=== PATIENT | male | born 1940 | race Two or more races ===

== ENCOUNTER 2016-12-06 10:42 | Emergency (ER) | payer MEDICARE ==
[~2016-12-06] VITALS: Ht 177.8 cm; Wt 77.1 kg
[~2016-12-06 10:42] MED LIST: AMOX500C2 PO; IBUP-1482 PO; METF500T4 PO
--- NOTE | 2016-12-06 10:42 | NUR ---
BB SELF: NAUSEA/VOMITING THIS AM. DENIES DIARRHEA. NAD NOTED. PT AAOX4, AMB WITH STEADY GAIT. RR EVEN AND UNLABORED. PENDING MD ROSAS.
[2016-12-06 11:24] LABS: BASOPHILS % (AUTO) 0.4 % (0.0-2.0); EOSINOPHILS # (AUTO) 0.1 /CMM (0.0-0.7); EOSINOPHILS % (AUTO) 1.2 % (0.0-6.0); HEMATOCRIT 47 % (39-51); HEMOGLOBIN 15.6 g/dL (13.5-17.5); LYMPHOCYTES # (AUTO) 1.7 /CMM (0.8-4.8); LYMPHOCYTES % (AUTO) 16.4 % (20.0-44.0); MEAN CORPUSCULAR HEMOGLOBIN 31 PG (26.0-33.0); MEAN CORPUSCULAR HGB CONC 34 g/dl (31.0-36.0); MEAN CORPUSCULAR VOLUME 92 fL (80-96); MONOCYTES # (AUTO) 0.5 /CMM (0.1-1.30); MONOCYTES % (AUTO) 4.8 % (2.0-12.0); NEUTROPHILS # (AUTO) 8.2 /CMM (1.8-8.9); NEUTROPHILS % (AUTO) 77.2 % (43.0-81.0); PLATELET COUNT (AUTO) 206 /CMM (150-450); RDW COEFFICIENT OF VARIATION 12.4 (11.5-15.0); RED BLOOD CELL COUNT(AUTO) 5.06 MIL/uL (4.5-6.0); WHITE BLOOD COUNT (AUTO) 10.5 K/uL (4.3-11.0)
[2016-12-06] MEDS ORDERED: ONDANSETRON HCL/PF 4 MG/2 ML VIAL ONE (11:25)
[2016-12-06] MEDS ORDERED: FAMOTIDINE/PF INJ 20 MG/2 ML VIAL IV ONE ×2 (11:25→11:30)
[2016-12-06] MEDS ORDERED: ONDANSETRON HCL/PF 4 MG/2 ML VIAL IVP ONE (11:30)
[2016-12-06] MEDS ORDERED: IV NS 0.9% 1,000 ML BAG IV ONE (11:30)
--- NOTE | 2016-12-06 11:36 | NUR ---
URINE OBTAINED SENT TO LAB.
[2016-12-06 11:39] LABS: ALANINE AMINOTRANSFERASE 14 U/L (12-78); ALBUMIN 3.4 g/dL (3.4-5.0); ALKALINE PHOSPHATASE 86 U/L (46-116); ASPARTATE AMINOTRANSFERASE 14 U/L (15-37); BILIRUBIN,DIRECT 0.1 mg/dL (0.0-0.2); BILIRUBIN,TOTAL 0.5 mg/dL (0.2-1.0); CALCIUM, SERUM 8.2 mg/dL (8.5-10.1); CARBON DIOXIDE 28 mmol/L (21-32); CHLORIDE 104 mmol/L (98-107); GLUCOSE 169 mg/dL (74-106); LIPASE 99 U/L (73-393); POTASSIUM 3.8 mmol/L (3.5-5.1); SODIUM SERUM 138 mmol/L (136-145); TOTAL PROTEIN, SERUM 6.8 g/dL (6.4-8.2); UREA NITROGEN, BLOOD 17 mg/dL (7-18)
[2016-12-06 11:41] LABS: TROPONIN I < 0.017 ng/mL (0.00-0.056)
[2016-12-06 11:47] LABS: APPEARANCE,URINE Clear (CLEAR); BILIRUBIN,URINE Negative (NEGATIVE); BLOOD, URINE Negative Ery/uL (NEGATIVE); COLOR,URINE Yellow (YELLOW); KETONES,URINE 15 (NEGATIVE); LEUKOCYTE ESTERASE ,URINE Negative (NEGATIVE); NITRITE, URINE Negative (NEGATIVE); PROTEIN,URINE Negative (NEGATIVE); UGLUCOSE Negative (NEGATIVE); UROBILINOGEN,URINE 0.2 EU/dL (0.2)
[2016-12-06 12:08] LABS: BACTERIA,URINE Rare /HPF (None Seen); RBC,URINE 0-2 /HPF (0-2); SQUAMOUS EPITHELIAL CELL,UR Few /HPF (None Seen); WBC,URINE NONE SEEN /HPF (0-3)
[2016-12-06 12:44] VITALS: BP 134/80
--- NOTE | 2016-12-06 12:45 | NUR ---
IV removed. Catheter intact and site benign. Pressure and 4x4 applied to site. No bleeding noted.
--- NOTE | 2016-12-06 12:45 | NUR ---
Patient discharged to home in stable condition. Written and verbal after care instructions given. Patient verbalizes understanding of instruction.
== END 2016-12-06 12:45 | disposition home or self-care (01) ==
LOC: ER 10:46
DX: R11.2 Nausea with vomiting, unspecified (principal); E11.9 Type 2 diabetes mellitus without complications; F17.200 Nicotine dependence, unspecified, uncomplicated
CPT/HCPCS: 36415; 71010; 80048; 80076; 81001; 83690; 84484; 85025; 93005; 96361; 96374; 96375; 99285; A4606; J2405; J3490; J7030; 81000-TC; Z7610

== ENCOUNTER 2017-08-07 03:20 | Emergency (ER) | payer MEDICARE ==
[~2017-08-07] VITALS: Ht 177.8 cm; Wt 81.6 kg
[~2017-08-07 03:20] MED LIST changes: -IBUP-1482 PO; +IBUP-1958 PO; +METF-440 PO; -METF500T4 PO
[2017-08-07 03:32] VITALS: BP 148/88
[2017-08-07] MEDS ORDERED: NAPROXEN 250 MG TABLET ONE (04:04)
[2017-08-07] MEDS ORDERED: NAPROXEN 500 MG TABLET PO SCH (04:30)
== END 2017-08-07 04:07 | disposition home or self-care (01) ==
LOC: ER 03:24
DX: L02.811 Cutaneous abscess of head [any part, except face] (principal); I10 Essential (primary) hypertension; F17.200 Nicotine dependence, unspecified, uncomplicated; Z60.2 Problems related to living alone
CPT/HCPCS: A4606; Z7610

== ENCOUNTER 2017-08-12 18:36 | Emergency (ER) | payer MEDICARE ==
[~2017-08-12] VITALS: Ht 177.8 cm; Wt 81.6 kg
[2017-08-12 18:36] VITALS: BP 129/75
--- NOTE | 2017-08-12 19:40 | NUR ---
CALLED PT IN [place], NO RESPONSE
[2017-08-12] MEDS ORDERED: CEFTRIAXONE 500 MG VIAL IM ONE (20:30)
[2017-08-12] MEDS ORDERED: AZITHROMYCIN 250 MG TABLET PO ONE (20:30)
[2017-08-12] MEDS ORDERED: LIDOCAINE 0.5% HCL 50 ML VIAL ONE (21:11)
[2017-08-12] MEDS ORDERED: CEFTRIAXONE 500 MG VIAL ONE (21:11)
[2017-08-12] MEDS ORDERED: AZITHROMYCIN 250 MG TABLET ONE (21:11)
[2017-08-12 22:12] LABS: APPEARANCE,URINE CLEAR (CLEAR); BILIRUBIN,URINE NEGATIVE (NEGATIVE); BLOOD, URINE 2+ Ery/uL (NEGATIVE); COLOR,URINE DARK YELLO (YELLOW); KETONES,URINE NEGATIVE (NEGATIVE); LEUKOCYTE ESTERASE ,URINE NEGATIVE (NEGATIVE); NITRITE, URINE NEGATIVE (NEGATIVE); PROTEIN,URINE 3+ mg/dl (NEGATIVE); UGLUCOSE TRACE mg/dL (NEGATIVE); UROBILINOGEN,URINE 0.2 EU/dL (0.2)
[2017-08-12 22:16] LABS: BACTERIA,URINE Few /HPF (None Seen); MUCUS,URINE Many /LPF (None Seen); SQUAMOUS EPITHELIAL CELL,UR Few /HPF (None Seen)
== END 2017-08-12 21:29 | disposition home or self-care (01) ==
LOC: ER 18:40
DX: Z20.2 Contact with and (suspected) exposure to infections with a predominantly sexual mode of transmission (principal); N48.1 Balanitis; I10 Essential (primary) hypertension; F17.200 Nicotine dependence, unspecified, uncomplicated
CPT/HCPCS: 81000-TC; 87491; 87591; A4606; J0696; J3490; Z7610

== ENCOUNTER 2017-08-18 12:44 | Inpatient (IN) | payer MEDICARE ==
[~2017-08-18] VITALS: Ht 177.8 cm; Wt 81.6 kg
--- NOTE | 2017-08-18 13:00 | NUR ---
RASH, SOB, S/P TAKING UNKNOWN ABX X3 DAYS, NAD NOTED, VSS, RESP EVEN AND UNLABORED. PT WAS PUT ON MONITOR, WAITING FOR MD ROSAS.
[2017-08-18 13:16] LABS: BASOPHILS # (AUTO) 0.1 /CMM (0.0-0.2); BASOPHILS % (AUTO) 0.7 % (0.0-2.0); EOSINOPHILS % (AUTO) 3.4 % (0.0-6.0); HEMATOCRIT 48 % (39-51); HEMOGLOBIN 15.8 g/dL (13.5-17.5); LYMPHOCYTES # (AUTO) 1.7 /CMM (0.8-4.8); LYMPHOCYTES % (AUTO) 14.9 % (20.0-44.0); MEAN CORPUSCULAR HGB CONC 33 g/dl (31.0-36.0); MEAN CORPUSCULAR VOLUME 91 fL (80-96); MONOCYTES # (AUTO) 0.8 /CMM (0.1-1.30); MONOCYTES % (AUTO) 7.6 % (2.0-12.0); NEUTROPHILS # (AUTO) 8.1 /CMM (1.8-8.9); NEUTROPHILS % (AUTO) 73.4 % (43.0-81.0); PLATELET COUNT (AUTO) 242 /CMM (150-450); RDW COEFFICIENT OF VARIATION 12.6 (11.5-15.0); RED BLOOD CELL COUNT(AUTO) 5.28 MIL/uL (4.5-6.0); WHITE BLOOD COUNT (AUTO) 11.1 K/uL (4.3-11.0)
[2017-08-18 13:25] LABS: CALCIUM, SERUM 8.7 mg/dL (8.5-10.1); CARBON DIOXIDE 27 mmol/L (21-32); CHLORIDE 103 mmol/L (98-107); CREATININE 1.1 mg/dL (0.6-1.3); GLUCOSE 180 mg/dL (74-106); POTASSIUM 3.9 mmol/L (3.5-5.1); SODIUM SERUM 136 mmol/L (136-145); UREA NITROGEN, BLOOD 30 mg/dL (7-18)
[2017-08-18] MEDS ORDERED: LIDOCAINE VISCOUS 2% UD 15 ML UDC MM ONE (13:30)
[2017-08-18] MEDS ORDERED: LIDOCAINE VISCOUS 2% UD 15 ML UDC ONE (13:34)
--- NOTE | 2017-08-18 13:42 | NUR ---
CALLED NURSING SUP. FOR MS BED
--- NOTE | 2017-08-18 14:19 | NUR ---
MS 119-1 FOR RASH, ADMITTING
[2017-08-18 15:10] LABS: APPEARANCE,URINE Clear (CLEAR); BILIRUBIN,URINE SMALL (NEGATIVE); BLOOD, URINE Trace-intact Ery/uL (NEGATIVE); COLOR,URINE Dark (YELLOW); KETONES,URINE Trace (NEGATIVE); LEUKOCYTE ESTERASE ,URINE Negative (NEGATIVE); NITRITE, URINE Negative (NEGATIVE); PROTEIN,URINE 30 mg/dl (NEGATIVE); UGLUCOSE Negative (NEGATIVE); UROBILINOGEN,URINE 0.2 EU/dL (0.2)
--- NOTE | 2017-08-18 15:20 | NUR ---
MS RN NOTE: RECEIVED PATIENT IN ROOM 119-2 AND REPORT WAS GIVEN BY [facility] RN. PATIENT IS ALERT, ORIENTED AND ABLE TO VERBALIZE HIS NEEDS. PATIENT DENIED ANY PAIN. PLACED IN BED IN A COMFORTABLE POSITION. HOB ELEVATED. COMPLETE BODY ASSESSMENT WAS DONE. BED LOCKED AT ALL TIMES. CALL LIGHT WITHIN REACH AT ALL TIMES. BED IN LOWEST POSITION. INFORMED DR. WILL RE:THE PATIENT'S ADMISSION AND AWAITING FOR DR. WILL'S ORDERS.
[2017-08-18 15:31] LABS: BACTERIA,URINE Rare /HPF (None Seen); RBC,URINE 0-2 /HPF (0-2); SQUAMOUS EPITHELIAL CELL,UR Rare /HPF (None Seen); WBC,URINE 0-2 /HPF (0-3)
[2017-08-18] MEDS ORDERED: ONDANSETRON HCL/PF 4 MG/2 ML VIAL IVP PRN (16:30)
[2017-08-18] MEDS ORDERED: Z GUARD REMEDY 2 OZ OINT TP PRN (16:30)
[2017-08-18] MEDS: IV D5/0.45 NACL 1,000 ML IV PRN (16:41)
[2017-08-18] MEDS ORDERED: diphenhydrAMINE HCL 50 MG/ML VIAL IV PRN (17:00)
[2017-08-18] MEDS ORDERED: NYSTATIN (PYXIS) 500,000 UNIT/5 ML ORAL.SUSP PO SCH (17:00)
[2017-08-18] MEDS: methylPREDNISolone SOD SUCC 40 MG/ML VIAL IV SCH (17:23)
[2017-08-18] MEDS: LIDOCAINE VISCOUS 2% UD 15 ML UDC MM SCH ×2 (18:43→22:53)
--- NOTE | 2017-08-18 19:02 | NUR ---
MS RN NOTE: PATIENT IN BED NOT ON ANY FORM OF DISTRESS. HOB ELEVATED. EX- PRESENT AT THE BEDSIDE. PATIENT STILL EATING HIS DINNER TRAY AT THIS TIME. REPORT GIVEN TO PM SHIFT FOR CONTINUITY OF CARE.
--- NOTE | 2017-08-18 19:25 | NUR ---
RN M/S NOTE RECEIVED PATIENT AOX3, SPEECH CLEAR, ABLE TO MAKE NEEDS KNOWN, DENIES PAIN, RESTING COMFORTABLY WITH HOB ELEVATED, NO CARDIAC OR RESPIRATORY DISTRESS REPORTED, SKIN KEPT CLEAN AND DRY, LAC 18G WITH D5W AT 75 ML/HR TOLERATING WELL, PATENT, SITE CDI, AMBULATORY WITH ASSIST, SAFETY MAINTAINED AT ALL TIMES, BED IN LOW LOCKED POSITION, CALL LIGHT WITHIN REACH, WILL CONTINUE TO MONITOR FOR ANY CHANGES IN CONDITION.
[2017-08-18 20:00] VITALS: BP 144/81
[2017-08-18] MEDS: ZOLPIDEM TARTRATE 5 MG TABLET PO PRN (22:53)
[2017-08-19] MEDS: LIDOCAINE VISCOUS 2% UD 15 ML UDC MM SCH ×6 (02:23→21:36)
[2017-08-19 04:00] VITALS: BP 113/59
[2017-08-19] MEDS: IV D5/0.45 NACL 1,000 ML IV PRN ×2 (05:35→20:35)
[2017-08-19 07:00] LABS: BASOPHILS % (AUTO) 0.2 % (0.0-2.0); EOSINOPHILS % (AUTO) 0.1 % (0.0-6.0); HEMATOCRIT 42 % (39-51); HEMOGLOBIN 14.6 g/dL (13.5-17.5); LYMPHOCYTES # (AUTO) 1.2 /CMM (0.8-4.8); LYMPHOCYTES % (AUTO) 14.8 % (20.0-44.0); MEAN CORPUSCULAR HGB CONC 34 g/dl (31.0-36.0); MEAN CORPUSCULAR VOLUME 90 fL (80-96); MONOCYTES # (AUTO) 0.6 /CMM (0.1-1.30); MONOCYTES % (AUTO) 7.5 % (2.0-12.0); NEUTROPHILS # (AUTO) 6.1 /CMM (1.8-8.9); NEUTROPHILS % (AUTO) 77.4 % (43.0-81.0); PLATELET COUNT (AUTO) 216 /CMM (150-450); RDW COEFFICIENT OF VARIATION 12.8 (11.5-15.0); WHITE BLOOD COUNT (AUTO) 7.9 K/uL (4.3-11.0)
--- NOTE | 2017-08-19 07:00 | NUR ---
M/S RN OPENING NOTE RECEIVED PATIENT IN BED.AOX3, SPEECH CLEAR, ABLE TO MAKE NEEDS KNOWN, DENIES PAIN, RESTING COMFORTABLY WITH HOB ELEVATED, NO CARDIAC OR RESPIRATORY DISTRESS REPORTED, IV LAC 18G WITH D5W AT 75 ML/HR . PATENT, SITE CDI, AMBULATORY WITH ASSIST, SAFETY MAINTAINED , BED IN LOW LOCKED POSITION, CALL LIGHT WITHIN REACH,SRX3. WILL CONTINUE TO MONITOR.
[2017-08-19 07:13] LABS: ALANINE AMINOTRANSFERASE 14 U/L (12-78); ALKALINE PHOSPHATASE 81 U/L (46-116); ASPARTATE AMINOTRANSFERASE 16 U/L (15-37); BILIRUBIN,TOTAL 0.2 mg/dL (0.2-1.0); CALCIUM, SERUM 8.6 mg/dL (8.5-10.1); CARBON DIOXIDE 26 mmol/L (21-32); CHLORIDE 104 mmol/L (98-107); CREATININE 0.8 mg/dL (0.6-1.3); GLUCOSE 224 mg/dL (74-106); MAGNESIUM 1.7 mg/dL (1.8-2.4); PHOSPHORUS 3.1 mg/dL (2.5-4.9); POTASSIUM 4.2 mmol/L (3.5-5.1); SODIUM SERUM 135 mmol/L (136-145); TOTAL PROTEIN, SERUM 6.8 g/dL (6.4-8.2); UREA NITROGEN, BLOOD 18 mg/dL (7-18)
[2017-08-19 07:19] LABS: CHOLESTEROL 142 mg/dL (<200); HDL CHOLESTEROL 32 mg/dL (40-60); LDL 105 mg/dL (0-99); TRIGLYCERIDES 45 mg/dL (30-150)
[2017-08-19 07:33] LABS: IRON, SERUM 46 ug/dl (50-175); TOTAL IRON BINDING CAPACITY 250 ug/dl (250-450)
[2017-08-19 08:00] VITALS: BP 147/71
[2017-08-19] MEDS: methylPREDNISolone SOD SUCC 40 MG/ML VIAL IV SCH ×3 (08:36→16:43)
[2017-08-19] MEDS: NYSTATIN (PYXIS) 500,000 UNIT/5 ML ORAL.SUSP PO SCH ×3 (08:37→16:42)
[2017-08-19] MEDS: ACETAMINOPHEN 325 MG TABLET PO PRN ×2 (08:44→21:18)
--- NOTE | 2017-08-19 09:00 | NUR ---
RN NOTES SEEN BY DR WILL MADE AWARE ABOUT THE LAB VALUES LOW Mg.HE SAID HE WILL FOLLOW UP .PLAN TO CONTINUE TREATMENT WITH STEROIDS.
[2017-08-19] MEDS: Magnesium 1GM/D5W 100ML PREMIX 100 ML IV SCH ×2 (10:57→12:05)
--- NOTE | 2017-08-19 11:00 | NUR ---
RN NOTES DR WILL MADE AWARE ABOUT THE VTE RISK.NO VTE PROPHYLAXIS NOW .CONTINUE TO MONITOR.
[2017-08-19 16:00] VITALS: BP 129/88
--- NOTE | 2017-08-19 19:00 | NUR ---
M/S RN SHIFT END NOTE PATIENT IN BED.AOX3, SPEECH CLEAR, ABLE TO MAKE NEEDS KNOWN, DENIES PAIN, RESTING COMFORTABLY WITH HOB ELEVATED, NO CARDIAC OR RESPIRATORY DISTRESS REPORTED, IV LAC 18G WITH D5W AT 75 ML/HR . PATENT, SITE CDI, AMBULATORY WITH ASSIST, SAFETY MAINTAINED , BED IN LOW LOCKED POSITION, CALL LIGHT WITHIN REACH,SRX3. WILL ENDORSE TO PM NURSE FOR POLINA.
--- NOTE | 2017-08-19 19:30 | NUR ---
RN NOTES RECEIVED PT AWAKE ON BED, A/OX4, AMBULATORY, AT BEDSIDE, IV FLUID 551/2 NS RUNNING @ 75ML/HR, DENIES PAIN, NO SOB, CALL LIGHT WITHIN REACH, SIDERAILSUPX2, CONTINUE TO MONITOR
[2017-08-19 20:00] VITALS: BP 130/61
--- NOTE | 2017-08-19 21:20 | NUR ---
RN NOTES COMPLAINED OF HEADACHE AND ASKED FOR TYLENOL. TYLENOL 650MG PO GIVEN ORDERED, V/S STABLE
--- NOTE | 2017-08-19 22:30 | NUR ---
RN NOTES NEW IV LINE INSERTED ON HIS RIGHT HAND #[id number]
--- NOTE | 2017-08-19 22:50 | NUR ---
RN NOTES PT. ASKED IF WE CAN GIVE SOMETHING FOR SLEEPING, AMBIEN 5MG PO GIVEN ORDERED, V/S STABLE
[2017-08-19] MEDS: ZOLPIDEM TARTRATE 5 MG TABLET PO PRN (22:51)
[2017-08-20] MEDS: LIDOCAINE VISCOUS 2% UD 15 ML UDC MM SCH ×4 (02:30→13:42)
--- NOTE | 2017-08-20 02:42 | NUR ---
RN NOTES XYLOCAINE 15ML PO WAS NOT GIVEN, PT IS SLEEPING AND HE'S SNORING. PT STATED HE WANTS TO SLEEP TONIGHT
[2017-08-20 04:32] VITALS: BP 135/68
[2017-08-20 04:39] VITALS: BP 135/68
--- NOTE | 2017-08-20 06:39 | NUR ---
RN NOTES AWAKE, DENIES PAIN, NO SOB, MORNING CARE RENDERED, CALL LIGHT WITHIN REACH, SIDERAILSUPX2, PT. NEEDS ATTENDED
[2017-08-20 06:58] LABS: CALCIUM, SERUM 8.2 mg/dL (8.5-10.1); CARBON DIOXIDE 27 mmol/L (21-32); CHLORIDE 104 mmol/L (98-107); CREATININE 0.8 mg/dL (0.6-1.3); GLUCOSE 250 mg/dL (74-106); MAGNESIUM 1.9 mg/dL (1.8-2.4); SODIUM SERUM 137 mmol/L (136-145); UREA NITROGEN, BLOOD 19 mg/dL (7-18)
--- NOTE | 2017-08-20 07:57 | NUR ---
MS RN OPENING NOTE RECEIVED BEDSIDE SBAR REPORT ON THE PATIENT. PATIENT IS A/O X4, COOPERATIVE, ASLEEP, EASILY AWAKEN IN BED. BED IS LOCKED IN LOWEST POSITION, SIDE RAILS UP X2, BED ALARM IS ON. PATIENT IS AMBULATORY. DENIES PAIN/DISCOMFORT AT THIS TIME. ALL NEEDS ARE MET. CALL LIGHT WITHIN REACH. EDUCATED TO CALL FOR ASSISTANCE USING THE CALL LIGHT AND VERBALIZED UNDERSTANDING. WILL CONTINUE TO ASSESS/MONITOR THROUGHOUT THE SHIFT.
[2017-08-20 08:00] VITALS: BP 116/58
[2017-08-20] MEDS: methylPREDNISolone SOD SUCC 40 MG/ML VIAL IV SCH ×2 (09:41→13:42)
[2017-08-20] MEDS: NYSTATIN (PYXIS) 500,000 UNIT/5 ML ORAL.SUSP PO SCH ×2 (09:41→13:42)
--- NOTE | 2017-08-20 09:46 | NUR ---
PATIENT COMPLAINED OF ITCHING. BENADRYL ADMINISTERED ORDERED.
--- NOTE | 2017-08-20 09:50 | NUR ---
DR DAY AT THE BEDSIDE PERFORMING RIGHT FOOT INCISION AND DRAINAGE. CONCENT SIGNED. PATIENT TOLERATED PROCEDURE WELL. SPECIMEN OBTAINED AND PLACED IN THE STERILE CONTAINER. LABELED PER POLICY. PATIENT TOLERATED PROCEDURE WELL. PICTURE TAKEN. ORDER RECEIVED AT THE BEDSIDE FOR WOUND CARE. READ BACK AND VERIFIED. WILL FOLLOW ORDER RECEIVED.
--- NOTE | 2017-08-20 10:00 | NUR ---
WOUND CARE CONSULT WOUND CARE RECEIVED CONSULT FOR BLISTERS. WOUND CARE WILL DEFER CONSULT AND ALL TREATMENT PLANS TO SURGICAL TEAM AT THIS TIME. PATIENT WITH BETHANY AT 19.
[2017-08-20] MEDS: MAG HYDROX/AL HYDROX/SIMETH 30 ML UDC PO PRN ×3 (11:07→11:22)
--- NOTE | 2017-08-20 11:36 | NUR ---
Received a verbal order to send the specimen to the lab for culture w REGINA. Read back and verified.
--- NOTE | 2017-08-20 11:37 | NUR ---
Dropped off to laboratory
[2017-08-20 16:00] VITALS: BP 118/71
--- NOTE | 2017-08-20 16:42 | NUR ---
MS VIBRATING SCREED OPERATOR NOTE DISCHARGE ORDER RECEIVED. DISCHARGE DISCUSSED WITH THE [PATIENT/DAUGHTER AT THE BEDSIDE. ALL BELONGINGS ARE ACCOUNTED FOR. DISCHARGE EDUCATION PROVIDED TO PT/FAMILY. CLINIC APPOINTMENT SCHEDULE IS HANDED TO THE PATIENT. IV CATHETER REMOVED. SKIN ASSESSMENT PICTURES TAKEN AND PLACED INTO THE CHART. OCCLUSIVE DRESSING APPLIED. PATIENT IS LEAVING THE UNIT IN STABLE CONDITION ACCOMPANIED BY THE DAUGHTER.
== END 2017-08-20 16:41 | disposition home or self-care (01) | DRG 596 ==
LOC: ER 12:46 → MEDSG1 14:24
PROVIDERS: ADMIT Internal Medicine; ATTEND Internal Medicine
PROC: 0J9Q0ZX Drainage of Right Foot Subcutaneous Tissue and Fascia, Open Approach, Diagnostic (ICD-10-PCS; principal; 2017-08-20)
DX: L51.1 Stevens-Johnson syndrome (principal); B37.0 Candidal stomatitis; L02.811 Cutaneous abscess of head [any part, except face]; L51.9 Erythema multiforme, unspecified; T37.0X5A Adverse effect of sulfonamides, initial encounter; Y92.009 Unspecified place in unspecified non-institutional (private) residence as the place of occurrence of the external cause; F17.200 Nicotine dependence, unspecified, uncomplicated; Z91.048 Other nonmedicinal substance allergy status; I10 Essential (primary) hypertension; S90.821A Blister (nonthermal), right foot, initial encounter
CPT/HCPCS: 36415; 71045-TC; 80048-TC; 80053-TC; 80061-TC; 81000-TC; 83540-TC; 83735-TC; 83880; 84100-TC; 85025-TC; 85652-TC; 86403-TC; 87040-TC; 87070-TC; 87081-TC; 87086-TC; A4606; A6402; J1200; J2920; J3475; J3490; J7070; Z7610

== ENCOUNTER 2017-08-23 12:47 | Outpatient (CLI) | payer MEDICARE ==
[2017-08-23 13:14] VITALS: BP 139/72
== END 2017-08-23 23:59 | disposition home or self-care (01) ==
LOC: MSC 12:47
PROVIDERS: ATTEND Internal Medicine
DX: T78.40XD Allergy, unspecified, subsequent encounter (principal); T37.0X5D Adverse effect of sulfonamides, subsequent encounter; T50.995D Adverse effect of other drugs, medicaments and biological substances, subsequent encounter; R03.0 Elevated blood-pressure reading, without diagnosis of hypertension; R73.03 Prediabetes; F17.200 Nicotine dependence, unspecified, uncomplicated

== ENCOUNTER 2018-03-21 07:53 | Inpatient (IN) | payer MEDICARE ==
[~2018-03-21] VITALS: Ht 177.8 cm; Wt 81.6 kg
[~2018-03-21 07:53] MED LIST changes: -AMOX500C2 PO; +ASPI-1152 PO; -IBUP-1958 PO; -METF-440 PO; +SIMV40TA5 PO
--- NOTE | 2018-03-21 08:03 | NUR ---
ACTIVATED CODE STROKE.
--- NOTE | 2018-03-21 08:04 | NUR ---
To CT with RN , Tech and registered nurse cardiac telemetry
[2018-03-21] MEDS ORDERED: IV NS 0.9% 250 ML IV ONE (08:09)
[2018-03-21] MEDS ORDERED: CT SWABBABLE VALVE TRANS SET 1 EA INFUS.SET MC ONE (08:09)
[2018-03-21] MEDS ORDERED: IOHEXOL-350 100 ML VIAL IV ONE (08:09)
[2018-03-21 08:13] LABS: BASOPHILS # (AUTO) 0.1 /CMM (0.0-0.2); BASOPHILS % (AUTO) 0.8 % (0.0-2.0); EOSINOPHILS % (AUTO) 1.1 % (0.0-6.0); HEMATOCRIT 47 % (39-51); LYMPHOCYTES # (AUTO) 3.5 /CMM (0.8-4.8); LYMPHOCYTES % (AUTO) 29.1 % (20.0-44.0); MEAN CORPUSCULAR HGB CONC 34 g/dl (31.0-36.0); MEAN CORPUSCULAR VOLUME 94 fL (80-96); MONOCYTES # (AUTO) 1.1 /CMM (0.1-1.30); NEUTROPHILS # (AUTO) 7.1 /CMM (1.8-8.9); PLATELET COUNT (AUTO) 207 /CMM (150-450); RED BLOOD CELL COUNT(AUTO) 5.05 MIL/uL (4.5-6.0); WHITE BLOOD COUNT (AUTO) 11.9 K/uL (4.3-11.0)
[2018-03-21 08:22] LABS: CALCIUM, SERUM 9.1 mg/dL (8.5-10.1); CARBON DIOXIDE 31 mmol/L (21-32); CHLORIDE 103 mmol/L (98-107); CREATININE 1.2 mg/dL (0.6-1.3); GLUCOSE 203 mg/dL (74-106); POTASSIUM 3.8 mmol/L (3.5-5.1); SODIUM SERUM 142 mmol/L (136-145); UREA NITROGEN, BLOOD 24 mg/dL (7-18)
--- NOTE | 2018-03-21 08:23 | NUR ---
returned from CT , place back on men's golf coach - family member at bedside
[2018-03-21 08:26] LABS: CHOLESTEROL 177 mg/dL (<200); HDL CHOLESTEROL 44 mg/dL (40-60); LDL 125 mg/dL (0-99); TRIGLYCERIDES 66 mg/dL (30-150)
[2018-03-21 08:28] LABS: ALANINE AMINOTRANSFERASE 33 U/L (12-78); ALBUMIN 3.7 g/dL (3.4-5.0); ALKALINE PHOSPHATASE 102 U/L (46-116); ASPARTATE AMINOTRANSFERASE 17 U/L (15-37); BILIRUBIN,DIRECT 0.1 mg/dL (0.0-0.2); BILIRUBIN,TOTAL 0.4 mg/dL (0.2-1.0); TOTAL PROTEIN, SERUM 7.6 g/dL (6.4-8.2)
[2018-03-21] MEDS ORDERED: ASPI-1152 PO (08:28)
--- NOTE | 2018-03-21 08:29 | NUR ---
Dr Arevalo discusse CT result with pt and at bedside
[2018-03-21] MEDS ORDERED: ASPIRIN 325 MG TABLET PO ONE (08:30)
[2018-03-21] MEDS ORDERED: IV NS 0.9% 500 ML BAG IV ONE (08:30)
--- NOTE | 2018-03-21 08:38 | NUR ---
Paged Dr. George for admission
--- NOTE | 2018-03-21 09:01 | NUR ---
tele nurologist performed at bedside Dr Keshawn Hawley family members at bedside
--- NOTE | 2018-03-21 09:35 | NUR ---
report called to Mary BROOKS
[2018-03-21] MEDS ORDERED: SIMV40TA5 PO (09:36)
[2018-03-21] MEDS ORDERED: ASPIRIN 325 MG TABLET ONE (09:41)
--- NOTE | 2018-03-21 10:00 | NUR ---
RETAIL MARKETING EXECUTIVE ADMITTING NOTES PATIENT WAS BROUGHT FROM ER ON ON A GURNEY. ALERT ORIENTED X4. ON ROOM AIR TOLERATING WELL. IN NO APPARENT DISTRESS OR DISCOMFORT AT THIS TIME. RESPIRATIONS EVEN AND UNLABORED. DENIES PAIN AND SOB. PATIENT IS STABLE. VITAL SIGNS STABLE. REPORTS DOUBLE VISION AND DIZZINESS. PATIENT IS BEING ADMITTED TO TELEMETRY FLOOR UNDER CARE OF DR. PATRICIO WHO WAS MADE AWARE OT PATIENT'S ARRIVAL. PATIENT WAS PLACED ON TELE MONITORING, WITH CURRENT READING SR 80S. PATIENT WITH IV ACCESSES ON HIS LEFT AC 20G SL AT THIS TIME AND RIGHT AC 20G PERIPHERAL IV, FLASHED WITH NS, INTACT AND PATENT. INITIAL PHYSICAL ASSESSMENT COMPLETED. PATIENT REFUSED TO REMOVE HIS PANTS AT THIS TIME. WHEN ASKED TO CHECK THE SKIN PATIENT REFUSED AT THIS TIME, REPORTED HAVING NO OPEN WOUNDS/CUTS OR ANY OTHER SKIN IMPAIRMENTS. NO EDEMA PRESENT. STROKE ASSESSMENT COMPLETED UPON ADMISSION WITH SCORE OF 0. PATIENT WAS MADE COMFORTABLE IN BED. INTRODUCED TO THE ROOM AND THE UNIT. SAFETY MEASURES APPLIED, BED IN LOW. LOCKED POSITION, SIDE RAILS UP X2, CALL LIGHT WITHIN EASY REACH. PATIENT'S FAMILY AT BEDSIDE. AWAITING 'S ORDERS, WILL CARRY OUT ADMIT ORDERS AND CONTINUE TO MONITOR.
[2018-03-21 10:45] VITALS: BP 153/82
[2018-03-21] MEDS: NICOTINE PATCH (21MG) 21 MG PATCH.TD24 TD SCH (11:50)
--- NOTE | 2018-03-21 11:50 | NUR ---
SN SWALLOW EVAL PERFORMED. PATIENT HAS NO DIFFICULTY SWALLOWING. NO COUGHING, GARGLING OBSERVED. MD AWARE.
[2018-03-21 12:00] VITALS: BP 131/70
--- NOTE | 2018-03-21 12:00 | NUR ---
RECEIVED ORDER FROM DR. PATRICIO TO OBTAIN URINE SAMPLE FOR DRUG TEST. INSTRUCTIONS GIVEN TO PATIENT. WILL FOLLOW UP.
--- NOTE | 2018-03-21 13:06 | NUR ---
PER DR. SHENG HARRISON TO ORDER ORDER CARDIAC DIET FOR THE PATIENT. NOTED AND CARRIED OUT.
[2018-03-21 14:20] VITALS: BP 153/82
--- NOTE | 2018-03-21 14:36 | NUR ---
PER DR. PATRICIO CONTINUE HOME MEDICATIONS ASPIRIN AND SIMVASTATIN AT THIS TIME. NOTED AND CARRIED OUT.
[2018-03-21 16:00] VITALS: BP 138/72
[2018-03-21] MEDS: SIMVASTATIN 40 MG TABLET PO SCH (17:17)
--- NOTE | 2018-03-21 18:34 | NUR ---
PLEAT PATTERNMAKER CLOSING NOTE PATIENT IN BED. SLEEPING, EASILY AROUSED WITH VERBAL STIMULI, ORIENTED X4. ON ROOM AIR, TOLERATING WELL. IN NO APPARENT DISTRESS OR DISCOMFORT AT THIS TIME. RESPIRATIONS EVEN AND UNLABORED. DENIES PAIN AND SOB. PATIENT REMAINS WITH DOUBLE/BLURRED VISION, AND DIZZINESS. MD AWARE. ENCOURAGED NOT TO GET OUT OF BED INDEPENDENTLY. PATIENT IS ABLE TO COMMUNICATE NEEDS. RIGHT AND LEFT AC IV ACCESSES 20G, BOTH PATENT AND INTACT, SL. PATIENT REMAINS WITH [facility] SCORE OF 0. NO FACIAL DROOPING, NO SLURRED SPEECH, WEAKNESS IDENTIFIED. PATIENT KEPT CLEAN AND COMFORTABLE. ALL NEEDS ATTENDED, SAFETY MEASURES IN PLACE, BED IN LOW LOCKED POSITION, SIDE RAILS UP X2, CALL LIGHT WITHIN EASY REACH. WILL ENDORSE TO PM NURSE FOR POLINA. Addendum: 03/21/18 at 1840 by SHELLIE BERGER RN PATIENT ON TELE MONITORING WITH SR AND HR READING OF 95.
--- NOTE | 2018-03-21 19:00 | NUR ---
MS RN OPENING NOTES Received patient A/O X4, on semi-Valdes's on bed. Denies any discomfort at this time. Breathing even and unlabored, no respiratory distress noted. On tele monitor with SR 86bpm. Patient claimed he feels better at this time. With patent bilateral AC peripheral IV line G#20, SL. For urinalysis, reminded patient to collect urine sample. Call light at bedside. Will continue to monitor.
[2018-03-21 20:00] VITALS: BP 108/62
--- NOTE | 2018-03-21 21:01 | NUR ---
OPTICAL GOODS DRILL OPERATOR NOTES Patient asleep comfortably on bed. Breathing even and unlabored. Visible abdominal movements with breathing noted. Family/visitors leaved.
--- NOTE | 2018-03-21 23:25 | NUR ---
FLOORMAN NOTES Patient asleep on right side lying position. Breathing even and unlabored, visible movement with respiration noted. Endorsed to TODD Dawson for continuity of care.
--- NOTE | 2018-03-21 23:30 | NUR ---
RN NOTES PATIENT RECEIVED IN BED, ASLEEP, EASILY AROUSABLE. NOTED WITH NO SOB, BREATHING EVEN AND UNLABORED. WILL CONTINUE TO MONITOR. BED IN LOW POSITION , LOCEKD IN PLACE. CALL LIGHT WITHIN EASY REACH.
[2018-03-22] VITALS: BP 110/70
[2018-03-22 04:00] VITALS: BP 132/64
--- NOTE | 2018-03-22 06:26 | NUR ---
RN CLOSING NOTES PATIENT IN BED, ALERT AND ORIENTED X 3, DENIES PAIN AT THIS TIME, NO DIZZINESS. PT WITH NO SOB, BREATHING EVEN AND UNLABORED, IN NO DISTRESS. ALL PATIENT'S NEEDS ATTENDED TO, LOCKED BED IN LOW POSITION, PLACED CALL LIGHT WITHIN EASY REACH. WILL ENDORSE TO AM SHIFT NURSE FOR CONTINUITY OF CARE.
[2018-03-22 07:04] LABS: BASOPHILS # (AUTO) 0.1 /CMM (0.0-0.2); BASOPHILS % (AUTO) 0.7 % (0.0-2.0); EOSINOPHILS % (AUTO) 1.9 % (0.0-6.0); HEMATOCRIT 45 % (39-51); HEMOGLOBIN 15.3 g/dL (13.5-17.5); LYMPHOCYTES # (AUTO) 1.5 /CMM (0.8-4.8); LYMPHOCYTES % (AUTO) 16.5 % (20.0-44.0); MEAN CORPUSCULAR HGB CONC 34 g/dl (31.0-36.0); MEAN CORPUSCULAR VOLUME 93 fL (80-96); MONOCYTES # (AUTO) 0.9 /CMM (0.1-1.30); MONOCYTES % (AUTO) 9.5 % (2.0-12.0); NEUTROPHILS # (AUTO) 6.4 /CMM (1.8-8.9); NEUTROPHILS % (AUTO) 71.4 % (43.0-81.0); PLATELET COUNT (AUTO) 191 /CMM (150-450)
[2018-03-22 07:24] LABS: CALCIUM, SERUM 8.5 mg/dL (8.5-10.1); CARBON DIOXIDE 28 mmol/L (21-32); CHLORIDE 104 mmol/L (98-107); CREATININE 0.9 mg/dL (0.6-1.3); GLUCOSE 201 mg/dL (74-106); POTASSIUM 3.5 mmol/L (3.5-5.1); SODIUM SERUM 139 mmol/L (136-145); UREA NITROGEN, BLOOD 16 mg/dL (7-18)
--- NOTE | 2018-03-22 07:55 | NUR ---
TOOL AND DIE MAKER/DESIGNER OPENING NOTES RECEIVED PT FROM NIGHTSHIFT NURSE IN STABLE CONDITION. PT IS A/O X3. NO SOB OR ACUTE SIGNS OF DISTRESS NOTED. BREATHING IS EVEN AND UNLABORED. PT ON RA AND SATING WELL. HE DENIES ANY CHEST PAIN AT THIS TIME. PT CURRENTLY SINUS RHYTHM ON THE TELE MONITOR WITH A CURRENT HR OF 80. IVs TO LEFT AND RIGHT AC NOTED TO BE PATENT AND INTACT. NO REDNESS OR SIGNS OF INFILTRATION NOTED. BED IN LOW LOCKED POSITION, SIDE RAILS UP X2, CALL LIGHT WITHIN REACH. WILL CONTINUE TO MONITOR
[2018-03-22 08:00] VITALS: BP 135/79
[2018-03-22] MEDS: NICOTINE PATCH (21MG) 21 MG PATCH.TD24 TD SCH (08:20)
[2018-03-22] MEDS: ASPIRIN EC 81 MG TABLET.DR PO SCH (08:20)
--- NOTE | 2018-03-22 10:30 | NUR ---
MS RN NOTES: STROKE EDUCATION STROKE EDUCATION PROVIDED. PT EDUCATED ON S/S OF STROKE, RISK FACTORS, LIFESTYLE MODIFICATION, AND EMERGENCY PREPAREDNESS. HE VERBALIZED FULL UNDERSTANDING OF EDUCATION AND STROKE MATERIALS PROVIDED. PT HANDED STROKE SURVEY AND VERBALIZED THAT HE WILL COMPLETE IT.
--- NOTE | 2018-03-22 15:15 | NUR ---
Social service consult requested by Dr. George for stroke. Pt. is a 77 year old male who was admitted to [facility] to r/o Stroke. Pt. is alert and oriented x 3. Pt. resides alone in an apartment on the 2nd floor. Pt. is independent with all his ADL's. Pt. uses a cane occasionally. Plan is for the pt. to be discharged back home once medically cleared. No other social service needs are requested at this time. Pt. has good family support. SW is available, if needed.
[2018-03-22 16:00] VITALS: BP 130/75
[2018-03-22] MEDS: SIMVASTATIN 40 MG TABLET PO SCH (17:52)
--- NOTE | 2018-03-22 18:33 | NUR ---
MS RN CLOSING NOTES PT REMAINS STABLE. ALL NEEDS ANTICIPATED FOR AND MET DURING SHIFT. ALL DUE MEDS GIVEN. PRN CARE RENDERED. IV REMAINS PATENT AND INTACT. NO CHANGES IN MENTATION THROUGHOUT. SAFETY MEASURES REMAIN IN PLACE. PT'S DAUGHTER AT BEDSIDE. WILL ENDORSE TO NIGHTSHIFT RN FOR POLINA
--- NOTE | 2018-03-22 19:25 | NUR ---
MS/RN NOTES RECEIVED PT. LYING IN BED. PT. IS AWAKE, ALERT AND ORIENTED X3. BREATHING EVEN AND UNLABORED ON ROOM AIR. NO SOB, RESPIRATORY DISTRESS OR COMPLAINTS OF PAIN NOTED AT THIS TIME. PT. NEURO CHECK PERFORMED. NO DEFICITS NOTED. PT. STATES HIS VERTIGO HAS IMPROVED FROM BEFORE. PT. WITH RIGHT AC 20 GAUGE IV SALINE LOCK PRESENT, PATENT AND INTACT. PT. FAMILY MEMBER PRESENT AT BEDSIDE. BED LOCKED AND IN LOWEST POSITION, SIDE RAILS UP X3, CALL LIGHT WITHIN REACH, WILL CONTINUE TO MONITOR.
[2018-03-22 20:00] VITALS: BP 149/87
--- NOTE | 2018-03-23 06:07 | NUR ---
MS/RN NOTES PT. IS LYING IN BED RESTING. BREATHING EVEN AND UNLABORED ON ROOM AIR. NO SOB, RESPIRATORY DISTRESS OR COMPLAINTS OF PAIN NOTED AT THIS TIME AND THROUGHOUT SHIFT. PT. WITH RIGHT AC 20 GAUGE IV SALINE LOCK PRESENT, PATENT AND INTACT. ALL PT. NEEDS MET. BED LOCKED AND IN LOWEST POSITION, SIDE RAILS UP X3, CALL LIGHT WITHIN REACH, WILL ENDORSE TO DAYSHIFT NURSE FOR CONTINUITY OF CARE.
[2018-03-23 07:21] LABS: BASOPHILS # (AUTO) 0.1 /CMM (0.0-0.2); BASOPHILS % (AUTO) 1.1 % (0.0-2.0); EOSINOPHILS % (AUTO) 2.1 % (0.0-6.0); HEMATOCRIT 46 % (39-51); HEMOGLOBIN 15.8 g/dL (13.5-17.5); LYMPHOCYTES # (AUTO) 2.2 /CMM (0.8-4.8); LYMPHOCYTES % (AUTO) 21.8 % (20.0-44.0); MEAN CORPUSCULAR HGB CONC 34 g/dl (31.0-36.0); MEAN CORPUSCULAR VOLUME 93 fL (80-96); MONOCYTES % (AUTO) 10.1 % (2.0-12.0); NEUTROPHILS # (AUTO) 6.5 /CMM (1.8-8.9); NEUTROPHILS % (AUTO) 64.9 % (43.0-81.0); PLATELET COUNT (AUTO) 198 /CMM (150-450); RED BLOOD CELL COUNT(AUTO) 5.01 MIL/uL (4.5-6.0)
[2018-03-23 07:36] LABS: CALCIUM, SERUM 8.4 mg/dL (8.5-10.1); CARBON DIOXIDE 28 mmol/L (21-32); CHLORIDE 104 mmol/L (98-107); CREATININE 0.7 mg/dL (0.6-1.3); GLUCOSE 133 mg/dL (74-106); POTASSIUM 3.8 mmol/L (3.5-5.1); SODIUM SERUM 140 mmol/L (136-145); UREA NITROGEN, BLOOD 19 mg/dL (7-18)
--- NOTE | 2018-03-23 07:39 | NUR ---
MS RN OPENING NOTES RECEIVED PATIENT IN STABLE CONDITION. IN NO APPARENT DISTRESS. BEDSIDE RAILS ARE UPX2. BED IS LOCKED AND LOWERED. CALL LIGHT IS WITHIN REACH. IV LINE IS INTACT AND PATENT. WILL CONTINUE TO MONITOR PATIENT.
[2018-03-23] MEDS: NICOTINE PATCH (21MG) 21 MG PATCH.TD24 TD SCH (09:00)
[2018-03-23] MEDS: ASPIRIN EC 81 MG TABLET.DR PO SCH (09:05)
--- NOTE | 2018-03-23 10:00 | NUR ---
PATIENT DISCHARGED IN STABLE CONDITION. IN NO APPARENT DISTRESS. ALL NEEDS WERE MET. EXITCARE WAS PROVIDED TO THE PATIENT AND SIGNED. IV LINE WAS REMOVED. ID BAND WAS REMOVED. PATIENT WAS ESCORTED OUT OF THE FACILITY BY TODD PINEDA. PRESCRIPTIONS WERE PROVIDED TO THE PATIENT. PATIENT WILL BE DRIVEN HOME SAFELY BY MAKI.
== END 2018-03-23 09:30 | disposition home or self-care (01) | DRG 149 ==
LOC: ER 07:57 → TELE 09:12 → MED 03-22 08:55
PROVIDERS: ADMIT Student in an Organized Health Care Education/Training Program; ATTEND Family Medicine
DX: H81.10 Benign paroxysmal vertigo, unspecified ear (principal); N17.0 Acute kidney failure with tubular necrosis; T43.625A Adverse effect of amphetamines, initial encounter; E11.9 Type 2 diabetes mellitus without complications; I65.09 Occlusion and stenosis of unspecified vertebral artery; I10 Essential (primary) hypertension; E78.5 Hyperlipidemia, unspecified; Z86.73 Personal history of transient ischemic attack (TIA), and cerebral infarction without residual deficits; F17.210 Nicotine dependence, cigarettes, uncomplicated; D72.829 Elevated white blood cell count, unspecified; Z91.14 Patient's other noncompliance with medication regimen
CPT/HCPCS: 36415; 70450-TC; 70496-TC; 70498-TC; 71045-TC; 80048-TC; 80061-TC; 80076-TC; 80305; 82962-TC; 83605-TC; 84484-TC; 85025-TC; 85730-TC; 87081-TC; 92611-TC; A4606; G0378; J7040; J7050; Q9967; Z7610

== ENCOUNTER 2018-10-01 13:18 | Emergency (ER) | payer MEDICARE ==
[~2018-10-01] VITALS: Ht 175.3 cm; Wt 81.6 kg
--- NOTE | 2018-10-01 13:24 | NUR ---
CAME IN FOR RLE SWELLING AND PRESSURE X 2 DAYS. NOTED W REDNESS, AND WARM TO TOUCH. TO ER BED 11, HOOKED TO MONITOR, CHANGED TO GOWN, PROVIDED W WARM BLANKET, AWAITING MD ROSAS
--- NOTE | 2018-10-01 13:32 | NUR ---
DR LOYOLA AT BEDSIDE
[2018-10-01 13:47] LABS: BASOPHILS # (AUTO) 0.1 /CMM (0.0-0.2); BASOPHILS % (AUTO) 0.6 % (0.0-2.0); HEMATOCRIT 41 % (39-51); HEMOGLOBIN 13.8 g/dL (13.5-17.5); LYMPHOCYTES # (AUTO) 1.7 /CMM (0.8-4.8); LYMPHOCYTES % (AUTO) 16.8 % (20.0-44.0); MEAN CORPUSCULAR HGB CONC 34 g/dl (31.0-36.0); MEAN CORPUSCULAR VOLUME 94 fL (80-96); MONOCYTES # (AUTO) 1.3 /CMM (0.1-1.30); MONOCYTES % (AUTO) 13.3 % (2.0-12.0); NEUTROPHILS # (AUTO) 6.9 /CMM (1.8-8.9); NEUTROPHILS % (AUTO) 68.3 % (43.0-81.0); PLATELET COUNT (AUTO) 200 /CMM (150-450); RED BLOOD CELL COUNT(AUTO) 4.31 MIL/uL (4.5-6.0); WHITE BLOOD COUNT (AUTO) 10.1 K/uL (4.3-11.0)
[2018-10-01 13:57] LABS: CALCIUM, SERUM 8.5 mg/dL (8.5-10.1); CARBON DIOXIDE 28 mmol/L (21-32); CHLORIDE 107 mmol/L (98-107); CREATININE 0.9 mg/dL (0.6-1.3); GLUCOSE 190 mg/dL (74-106); POTASSIUM 3.8 mmol/L (3.5-5.1); SODIUM SERUM 141 mmol/L (136-145); UREA NITROGEN, BLOOD 21 mg/dL (7-18)
--- NOTE | 2018-10-01 14:02 | NUR ---
ULTRASOUND IN PROGRESS AT BS
--- NOTE | 2018-10-01 14:42 | NUR ---
IV removed. Catheter intact and site benign. Pressure and 4x4 applied to site. No bleeding noted.Patient discharged to home in stable condition. Written and verbal after care instructions given. Patient verbalizes understanding of instruction.
[2018-10-01 14:44] VITALS: BP 118/64
== END 2018-10-01 14:44 | disposition home or self-care (01) ==
LOC: ER 13:18
DX: L03.115 Cellulitis of right lower limb (principal); I10 Essential (primary) hypertension; E11.9 Type 2 diabetes mellitus without complications; F17.200 Nicotine dependence, unspecified, uncomplicated; Z88.2 Allergy status to sulfonamides; Z88.1 Allergy status to other antibiotic agents; Z60.2 Problems related to living alone; Z79.82 Long term (current) use of aspirin; Z79.899 Other long term (current) drug therapy
CPT/HCPCS: 36415; 80048-TC; 85025-TC; 85730-TC; 93971-TC